=== PATIENT | female | born 1960 | race Caucasian/White ===

== ENCOUNTER → 2022-10-19 09:53 | Outpatient (CLI) | payer BC, SELFPAY ==
[2022-10-19 12:34] LABS: Alanine Aminotransferase 19 IU/L (<35); Albumin 4.6 g/dL (3.5-5.0); Albumin Globulin Ratio 1.5 (1.0-2.8); Alkaline Phosphatase 58 U/L (38-126); Aspartate Aminotransferase 28 IU/L (14-36); BUN Creatinine Ratio 15.7 (6-22); Bilirubin Total 0.5 mg/dL (0.2-1.3); Blood Urea Nitrogen 11 mg/dL (7-17); Calcium 9.6 mg/dL (8.4-10.2); Carbon Dioxide 29 mmol/L (22-32); Chloride 103 mmol/L (98-107); Estimated Glomerular Filt Rate > 60 mL/min (>60); Glucose 88 mg/dL (80-110); HEMOLYSIS < 15 (0-50); Potassium 4.3 mmol/L (3.4-5.1); Sodium 138 mmol/L (137-145); Total Protein 7.6 g/dL (6.3-8.2)
[2022-10-19 12:50] LABS: Free T3, Triiodothyronine Free 3.32 pg/mL (2.77-5.27); Free T4, Direct Thyroxine 1.05 ng/dL (0.78-2.19)
[2022-10-19 13:03] LABS: Thyroid Stimulating Hormone 1.86 uIU/mL (0.47-4.68)
[2022-10-19 15:45] LABS: Vitamin D 25 Hydroxy (D3) 31.9 ng/mL (30.0-100.0)
[2022-10-20 08:09] LABS: Labcorp Hemoglobin (Hb) A1c 5.1 % (4.8-5.6)
[2022-10-21 00:07] LABS: Thyroid Peroxidase Antibodies 10 IU/mL (0-34)
[2022-10-21 12:18] LABS: Insulin Level Total 3.4 uIU/mL (2.6-24.9)
== END ==
PROVIDERS: Referring Provider Family Medicine; Visit Provider Family Medicine
DX: Z86.39 Personal history of other endocrine, nutritional and metabolic disease (principal); R63.5 Abnormal weight gain; E55.9 Vitamin D deficiency, unspecified
CPT/HCPCS: 36415; 80053; 82306; 83036; 83525; 84439; 84443; 84481; 86376